=== PATIENT | male | born 1980 | race Caucasian/White ===

== ENCOUNTER 2021-11-30 19:44 | Emergency (ER) | payer OTHER ==
[~2021-11-30] VITALS: Ht 170.2 cm; Wt 77.1 kg
[2021-11-30 19:50] VITALS: BP 131/82
--- NOTE | 2021-11-30 19:50 | NUR ---
TONIO EARLY. TAKEN TO CHAIR A
--- NOTE | 2021-11-30 20:15 | NUR ---
PATIENT [facility] DEPT. PATIENT EXAMINED BY DR. GARCIA. PATIENT MEDICALLY CLEARED AND RELEASED IN CUSTODY IN STABLE CONDITION. ORIGINAL PRE-BOOK FORM GIVEN TO OFFICER [facility], #[id number].
== END 2021-11-30 20:15 ==
LOC: MED 19:44
DX: Z02.89 Encounter for other administrative examinations (principal); V47.5XXA Car driver injured in collision with fixed or stationary object in traffic accident, initial encounter; Y93.89 Activity, other specified; Y92.89 Other specified places as the place of occurrence of the external cause; Y99.8 Other external cause status
CPT/HCPCS: 99283